=== PATIENT | female | born 1980 | race Caucasian/White ===

== ENCOUNTER 2021-07-19 21:38 | Emergency (ER) | payer MEDICAID ==
[~2021-07-19] VITALS: Ht 160 cm; Wt 98.2 kg
[2021-07-19 22:45] VITALS: BP 102/69
--- NOTE | 2021-07-19 22:50 | NUR ---
pt in restroom for urine collection.
--- NOTE | 2021-07-19 23:39 | NUR ---
pt taken to bed 12.
[2021-07-20] MEDS ORDERED: KETOROLAC 60 MG/2 ML VIAL IM ONE (00:05)
[2021-07-20] MEDS ORDERED: IBUP-2213 PO (00:37)
[2021-07-20] MEDS ORDERED: ACET-8386 PO (00:37)
--- NOTE | 2021-07-20 00:43 | NUR ---
PATIENT CLEARED FOR DISHCARGE AT THIS TIME. ADVISED TO FOLLOW UP WITH PCP AND RETURN IF CONDITION WORSENS. NO OTHER COPLAINTS OR CONCERNS AT THIS TIME FOLLOWING DISCHARGE [facility].
[2021-07-20 00:44] VITALS: BP 132/67
== END 2021-07-20 00:43 | disposition home or self-care (01) ==
LOC: MED 21:38
DX: R51.9 Headache, unspecified (principal); R30.0 Dysuria; Z98.890 Other specified postprocedural states
CPT/HCPCS: 81002; 81025; 96372; 99283; J1885

== ENCOUNTER 2022-04-27 10:14 | Emergency (ER) | payer MEDICAID ==
[~2022-04-27] VITALS: Ht 160 cm; Wt 95.7 kg
[~2022-04-27 10:14] MED LIST: ACET-8386 PO; IBUP-2213 PO
[2022-04-27 10:42] VITALS: BP 100/77
--- NOTE | 2022-04-27 11:15 | NUR ---
Patient ambulated to bed 6.
--- NOTE | 2022-04-27 11:35 | NUR ---
Dr. Landry evaluating patient at bedside.
--- NOTE | 2022-04-27 11:40 | NUR ---
41 y/o female bib self for referral from clinic to r/o DVT to left calf. Patient had Ultrasound at Clinic and was refered to go to ER today. Patient has been having pain to left leg x 6 days. Patient is unable to bend knee and has pain upon ambulation. Patient is not noted with any swelling, heat or redness to left leg. Medical History: High Triglycerides NKDA
[2022-04-27 13:14] LABS: PROTHROMBIN TIME 10.4 secs (10.8-13.4)
[2022-04-27 13:17] LABS: ALBUMIN 3.6 g/dL (3.4-5.0); ANION GAP 10.6 (8-16); BASOPHILS % (AUTO) 0.3 % (0.0-2.0); CARBON DIOXIDE 29.9 mmol/L (21-32); CREATININE 0.8 mg/dL (0.6-1.3); EOSINOPHILS % (AUTO) 0.2 % (0.0-4.0); HEMATOCRIT 40.9 % (36-48); HEMOGLOBIN 13.4 g/dL (12.0-16.0); LYMPHOCYTES % (AUTO) 20.5 % (20.5-51.1); MEAN CORPUSCULAR HEMOGLOBIN 26 pg (27-31); MEAN CORPUSCULAR HGB CONC 33 g/dL (33-37); MEAN CORPUSCULAR VOLUME 80.1 fL (80-94); MONOCYTES # (AUTO) 0.1 K/uL (0.8-1.0); MONOCYTES % (AUTO) 2.4 % (1.7-9.3); NEUTROPHILS # (AUTO) 3.9 K/uL (1.8-7.7); NEUTROPHILS % (AUTO) 76.6 % (42.2-75.2); PLATELET COUNT (AUTO) 267 K/uL (140-450); POTASSIUM 4.5 mmol/L (3.5-5.1); RED BLOOD CELL COUNT(AUTO) 5.11 MIL/uL (4.20-5.40); RED CELL DISTRIBUTION WIDTH 15.8 % (11.6-13.7); TOTAL BILIRUBIN 0.2 mg/dL (0.0-1.0); WHITE BLOOD COUNT (AUTO) 5.1 K/uL (4.8-10.8)
[2022-04-27] MEDS ORDERED: NAPR-1704 PO (13:53)
[2022-04-27 14:35] VITALS: BP 112/79
--- NOTE | 2022-04-27 14:35 | NUR ---
Patient discharged with v/s stable. Written and verbal after care instructions given. Patient alert, oriented and verbalized understanding of instructions. Ambulatory with steady gait. All questions addressed prior to discharge. ID band removed. Patient advised to follow up with PMD. Rx of NAPROXEN given. Opportunity to ask questions provided and answered.
== END 2022-04-27 14:35 | disposition home or self-care (01) ==
LOC: MED 10:14
DX: M25.562 Pain in left knee (principal); Z98.890 Other specified postprocedural states; Z79.1 Long term (current) use of non-steroidal anti-inflammatories (NSAID); Z79.891 Long term (current) use of opiate analgesic
CPT/HCPCS: 36415; 73562; 80053; 81002; 81025; 85025; 85610; 85730; 93005; 93971; 99285; Q0092